=== PATIENT | male | born 1980 | race Caucasian/White ===

== ENCOUNTER 2021-12-05 09:14 | Inpatient (IN) | payer SELFPAY ==
[~2021-12-05] VITALS: Ht 175.3 cm; Wt 88.5 kg
[2021-12-05] MEDS ORDERED: SODIUM CHLORIDE 0.9% 1000ML 1,000 ML IV STA (09:26)
[2021-12-05 09:44] LABS: BASOPHILS % 0.2 % (0.0-1.0); EOSINOPHILS % 0.2 % (0.0-6.0); HEMATOCRIT 43.2 % (38.2-49.6); HEMOGLOBIN 14.9 g/dL (14.0-18.0); LYMPHOCYTES # (AUTO) 0.6 (1.0-3.2); LYMPHOCYTES % 4.2 % (18.0-39.1); MEAN CORPUSCULAR HEMOGLOBIN 31.4 pg (28-32); MEAN CORPUSCULAR HGB CONC 34.5 g/dL (31-35); MEAN CORPUSCULAR VOLUME 90.9 fL (81-99); MONOCYTES # (AUTO) 0.7 (0.2-0.8); MONOCYTES % 5.3 % (4.4-11.3); NEUTROPHILS # (AUTO) 11.9 (2.1-6.9); NEUTROPHILS % 89.5 % (38.7-80.0); PLATELET COUNT 152 x10e3/uL (140-360); RED BLOOD COUNT 4.75 x10e6/uL (4.3-5.7); RED CELL DISTRIBUTION WIDTH 11.6 % (11.7-14.4)
[2021-12-05] MEDS ORDERED: CEFEPIME 2 GM in SODIUM CHLORIDE 0.9% 100 ML IV ONE (09:45)
[2021-12-05 09:46] LABS: CLARITY,URINE CLEAR (CLEAR); COLOR,URINE YELLOW (YELLOW); KETONES,URINE NEGATIVE (NEGATIVE); LEUKOCYTE ESTERASE ,URINE NEGATIVE (NEGATIVE); NITRITE,URINE NEGATIVE (NEGATIVE); PROTEIN,URINE DIPSTICK TRACE (NEGATIVE); URINE UROBILINOGEN 0.2 mg/dL (0.2 - 1)
[2021-12-05] MEDS ORDERED: DIATRIZOATE MEGL/DIATRIZOA SOD 30 ML BTL PO ONE (10:07)
[2021-12-05 10:10] LABS: ALANINE AMINOTRANSFERASE 23 IU/L (0-55); ALBUMIN 4.1 g/dL (3.5-5.0); ALBUMIN/GLOBULIN RATIO 1.3 (0.8-2.0); ALKALINE PHOSPHATASE 63 IU/L (40-150); ANION GAP 13.7 mmol/L (8-16); BLOOD UREA NITROGEN 11 mg/dL (7-26); BUN/CREATININE RATIO 12 (6-25); CALCIUM 8.6 mg/dL (8.4-10.2); CARBON DIOXIDE 23 mmol/L (22-29); CHLORIDE 107 mmol/L (98-107); CREATINE KINASE 131 IU/L (30-200); CREATININE, SERUM 0.92 mg/dL (0.72-1.25); GLUCOSE 129 mg/dL (74-118); LIPASE 13 U/L (8-78); MAGNESIUM 1.6 MG/DL (1.3-2.1); POTASSIUM 3.7 mmol/L (3.5-5.1); SODIUM 140 mmol/L (136-145)
[2021-12-05 10:13] LABS: INR 0.95; PROTHROMBIN TIME 13.6 seconds (11.9-14.5)
[2021-12-05 10:15] LABS: RBC,URINE 0-5 /HPF (0-5); WBC,URINE (MAN) 0-5 /HPF (0-5)
[2021-12-05 10:16] LABS: BACTERIA,URINE MANY /HPF; EPITHELIAL CELLS,URINE FEW /LPF; MUCUS,URINE MANY (RARE)
[2021-12-05] MEDS ORDERED: IOPAMIDOL 370 MG/ML 100 ML INFUS..BTL INJ ONE (10:53)
[2021-12-05] MEDS: SODIUM CHLORIDE 0.9% 1000ML 1,000 ML IV SCH ×2 (12:15→20:15)
[2021-12-05] MEDS ORDERED: PROMETHAZINE 12.5MG/ NACL 0.9% 12.5 MG/50 ML BAG IV ONE (12:15)
[2021-12-05] MEDS: METRONIDAZOLE 500MG/NS 100ML 100 ML IV SCH ×2 (12:15→18:39)
[2021-12-05] MEDS: HYDROMORPHONE 1MG/1ML INJ IV PRN ×3 (13:26→20:39)
[2021-12-05] MEDS: PROMETHAZINE 12.5MG/ NACL 0.9% 12.5 MG/50 ML BAG IV PRN (13:27)
[2021-12-05] MEDS ORDERED: ACETAMINOPHEN 1000 MG/100 ML 100 ML IV ONE (13:33)
[2021-12-05 14:44] VITALS: BP 131/76
[2021-12-05] MEDS ORDERED: AMLODIPINE BESYL5 MG PO (14:53)
[2021-12-05 17:14] VITALS: BP 114/49
[2021-12-05] MEDS: CEFEPIME 2 GM in SODIUM CHLORIDE 0.9% 100 ML IV SCH (17:16)
[2021-12-05 19:51] VITALS: BP 138/54
[2021-12-05 20:00] VITALS: BP 138/54
[2021-12-05] MEDS: ONDANSETRON HCL INJ 2MG/ML 2ML 2 MG/ML VIAL IV PRN (20:39)
[2021-12-05] MEDS ORDERED: ACETAMINOPHEN 325 MG TAB PO PRN (22:15)
[2021-12-06] VITALS (7 sets, daily range): BP systolic 117–136; BP diastolic 53–79
[2021-12-06] MEDS: PROMETHAZINE 12.5MG/ NACL 0.9% 12.5 MG/50 ML BAG IV PRN (00:26)
[2021-12-06] MEDS: METRONIDAZOLE 500MG/NS 100ML 100 ML IV SCH ×4 (00:26→18:39)
[2021-12-06] MEDS: HYDROMORPHONE 1MG/1ML INJ IV PRN ×7 (00:27→21:36)
[2021-12-06] MEDS: CEFEPIME 2 GM in SODIUM CHLORIDE 0.9% 100 ML IV SCH ×3 (01:44→16:53)
[2021-12-06] MEDS: SODIUM CHLORIDE 0.9% 1000ML 1,000 ML IV SCH ×3 (01:44→21:35)
[2021-12-06] MEDS: ONDANSETRON HCL INJ 2MG/ML 2ML 2 MG/ML VIAL IV PRN ×3 (04:59→21:36)
[2021-12-06 05:11] LABS: BASOPHILS % 0.2 % (0.0-1.0); HEMATOCRIT 42.7 % (38.2-49.6); HEMOGLOBIN 14.5 g/dL (14.0-18.0); LYMPHOCYTES # (AUTO) 0.8 (1.0-3.2); LYMPHOCYTES % 10.1 % (18.0-39.1); MEAN CORPUSCULAR HEMOGLOBIN 31.5 pg (28-32); MEAN CORPUSCULAR VOLUME 92.8 fL (81-99); MONOCYTES # (AUTO) 0.5 (0.2-0.8); NEUTROPHILS # (AUTO) 6.7 (2.1-6.9); NEUTROPHILS % 83.3 % (38.7-80.0); PLATELET COUNT 118 x10e3/uL (140-360); RED CELL DISTRIBUTION WIDTH 11.8 % (11.7-14.4)
[2021-12-06 05:44] LABS: ALBUMIN 3.5 g/dL (3.5-5.0); ALBUMIN/GLOBULIN RATIO 1.1 (0.8-2.0); CALCIUM 8.3 mg/dL (8.4-10.2); CREATININE, SERUM 1.03 mg/dL (0.72-1.25)
[2021-12-07] VITALS (7 sets, daily range): BP systolic 117–131; BP diastolic 73–87
[2021-12-07] MEDS: HYDROMORPHONE 1MG/1ML INJ IV PRN (00:40)
[2021-12-07] MEDS: ONDANSETRON HCL INJ 2MG/ML 2ML 2 MG/ML VIAL IV PRN ×2 (00:40→20:15)
[2021-12-07] MEDS: METRONIDAZOLE 500MG/NS 100ML 100 ML IV SCH ×4 (03:02→18:28)
[2021-12-07] MEDS: CEFEPIME 2 GM in SODIUM CHLORIDE 0.9% 100 ML IV SCH ×3 (03:02→17:14)
[2021-12-07] MEDS: PROMETHAZINE 12.5MG/ NACL 0.9% 12.5 MG/50 ML BAG IV PRN (03:28)
[2021-12-07] MEDS: SODIUM CHLORIDE 0.9% 1000ML 1,000 ML IV SCH ×2 (04:57→17:00)
[2021-12-07 05:28] LABS: BASOPHILS % 0.5 % (0.0-1.0); EOSINOPHILS # (AUTO) 0.1 (0.0-0.4); HEMATOCRIT 39.4 % (38.2-49.6); HEMOGLOBIN 13.5 g/dL (14.0-18.0); MEAN CORPUSCULAR HEMOGLOBIN 31.3 pg (28-32); MEAN CORPUSCULAR HGB CONC 34.3 g/dL (31-35); MEAN CORPUSCULAR VOLUME 91.4 fL (81-99); MONOCYTES # (AUTO) 0.7 (0.2-0.8); MONOCYTES % 11.3 % (4.4-11.3); NEUTROPHILS # (AUTO) 3.9 (2.1-6.9); NEUTROPHILS % 68.7 % (38.7-80.0); PLATELET COUNT 109 x10e3/uL (140-360); RED BLOOD COUNT 4.31 x10e6/uL (4.3-5.7); RED CELL DISTRIBUTION WIDTH 11.7 % (11.7-14.4)
[2021-12-07 05:47] LABS: ANION GAP 12.6 mmol/L (8-16); CALCIUM 8.1 mg/dL (8.4-10.2); CREATININE, SERUM 1.04 mg/dL (0.72-1.25); POTASSIUM 3.6 mmol/L (3.5-5.1)
[2021-12-07] MEDS: ACETAMINOPHEN/CODEINE 300MG - 30MG TAB PO PRN ×2 (06:30→20:15)
[2021-12-07] MEDS ORDERED: CYCLOBENZAPRINE HCL 10 MG TAB PO PRN (07:15)
[2021-12-07] MEDS: PANTOPRAZOLE SOD 40 MG TABEC PO SCH (08:25)
[2021-12-08 00:05] VITALS: BP 136/71
[2021-12-08] MEDS: METRONIDAZOLE 500MG/NS 100ML 100 ML IV SCH ×2 (00:29→06:47)
[2021-12-08] MEDS: CEFEPIME 2 GM in SODIUM CHLORIDE 0.9% 100 ML IV SCH ×2 (02:00→09:21)
[2021-12-08] MEDS: ONDANSETRON HCL INJ 2MG/ML 2ML 2 MG/ML VIAL IV PRN ×2 (02:25→07:07)
[2021-12-08 04:56] LABS: BASOPHILS % 0.4 % (0.0-1.0); EOSINOPHILS # (AUTO) 0.2 (0.0-0.4); EOSINOPHILS % 3.6 % (0.0-6.0); HEMATOCRIT 39.9 % (38.2-49.6); HEMOGLOBIN 13.7 g/dL (14.0-18.0); LYMPHOCYTES # (AUTO) 1.3 (1.0-3.2); LYMPHOCYTES % 23.9 % (18.0-39.1); MEAN CORPUSCULAR HEMOGLOBIN 31.2 pg (28-32); MEAN CORPUSCULAR HGB CONC 34.3 g/dL (31-35); MEAN CORPUSCULAR VOLUME 90.9 fL (81-99); MONOCYTES # (AUTO) 0.8 (0.2-0.8); MONOCYTES % 13.8 % (4.4-11.3); NEUTROPHILS # (AUTO) 3.3 (2.1-6.9); NEUTROPHILS % 57.9 % (38.7-80.0); PLATELET COUNT 126 x10e3/uL (140-360); RED BLOOD COUNT 4.39 x10e6/uL (4.3-5.7); RED CELL DISTRIBUTION WIDTH 11.7 % (11.7-14.4)
[2021-12-08 05:14] LABS: ANION GAP 13.4 mmol/L (8-16); CALCIUM 8.3 mg/dL (8.4-10.2); POTASSIUM 3.4 mmol/L (3.5-5.1)
[2021-12-08 05:57] VITALS: BP 111/50
[2021-12-08 07:58] VITALS: BP 123/80
[2021-12-08 08:30] VITALS: BP 123/80
[2021-12-08] MEDS: PANTOPRAZOLE SOD 40 MG TABEC PO SCH (08:31)
[2021-12-08] MEDS ORDERED: ACETAMINOPHEN325 M1 PO (10:15)
[2021-12-08] MEDS ORDERED: PROTONIX40 MG/ML PO (10:15)
[2021-12-08] MEDS ORDERED: CYCLOBENZAPRINE10 MG PO (10:15)
== END 2021-12-08 10:35 | disposition home or self-care (01) | DRG 392 ==
LOC: ER 09:27 → ERHOLD 12:07 → MED/SURG 14:00
PROVIDERS: ADMIT Internal Medicine; ATTEND Internal Medicine
DX: K57.30 Diverticulosis of large intestine without perforation or abscess without bleeding (principal); I10 Essential (primary) hypertension; Z79.899 Other long term (current) drug therapy; Z20.822 Contact with and (suspected) exposure to COVID-19; Z88.0 Allergy status to penicillin; K59.00 Constipation, unspecified; R91.1 Solitary pulmonary nodule; R25.2 Cramp and spasm
CPT/HCPCS: 36415; 71045; 74177; 80048; 80053; 81001; 82550; 82553; 83605; 83690; 83735; 84484; 85025; 85610; 85730; 87040; 87086; 93005; 99284; J0692; J1170; J2405; J2550; J7030; J7050; Q9967

== ENCOUNTER 2021-12-17 00:52 | Emergency (ER) | payer SELFPAY ==
[~2021-12-17] VITALS: Ht 175.3 cm; Wt 88.5 kg
[~2021-12-17 00:52] MED LIST: ACETAMINOPHEN325 M1 PO; AMLODIPINE BESYL5 MG PO; CYCLOBENZAPRINE10 MG PO; PROTONIX40 MG/ML PO
[2021-12-17] MEDS ORDERED: HYDROXYZINE HCL 25 MG TAB PO ONE (01:06)
[2021-12-17] MEDS ORDERED: PREDNISONE 20 MG TAB PO STA (01:06)
[2021-12-17] MEDS ORDERED: FAMOTIDINE 20 MG TAB PO STA (01:06)
[2021-12-17] MEDS ORDERED: PREDNISONE 20 MG TAB ONE (01:24)
[2021-12-17] MEDS ORDERED: HYDROXYZINE HCL 25 MG TAB ONE (01:24)
[2021-12-17] MEDS ORDERED: FAMOTIDINE 20 MG TAB ONE (01:24)
== END 2021-12-17 02:52 | disposition home or self-care (01) ==
LOC: ER 00:57
DX: L50.9 Urticaria, unspecified (principal); Z88.0 Allergy status to penicillin
CPT/HCPCS: 99283; J3410; J7512

== ENCOUNTER 2021-12-17 22:32 | Emergency (ER) | payer SELFPAY ==
[~2021-12-17] VITALS: Ht 175.3 cm; Wt 88.5 kg
[2021-12-17] MEDS ORDERED: EPINEPHRINE HCL 1:1000 1ML 1 MG/ML AMP INJ STA (22:38)
[2021-12-17] MEDS ORDERED: SODIUM CHLORIDE 0.9% 1000ML 1,000 ML IV STA (22:38)
[2021-12-17] MEDS ORDERED: METHYLPREDNISOLONE SOD SUCC 125 MG/2ML VIAL IV STA (22:38)
[2021-12-17] MEDS ORDERED: DIPHENHYDRAMINE HCL INJ 50 MG/ML VIAL IV ONE (22:45)
[2021-12-17] MEDS ORDERED: DIPHENHYDRAMINE HCL 25 MG CAP PO STA (22:49)
[2021-12-17] MEDS ORDERED: FAMOTIDINE 20 MG TAB PO STA (22:50)
[2021-12-17] MEDS ORDERED: EPINEPHRINE HCL 1:1000 1ML 1 MG/ML AMP ONE (22:55)
[2021-12-17] MEDS ORDERED: DIATRIZOATE MEGL/DIATRIZOA SOD 30 ML BTL PO ONE (22:56)
[2021-12-17] MEDS ORDERED: DIPHENHYDRAMINE HCL 25 MG CAP ONE (23:04)
[2021-12-18] MEDS ORDERED: EPINEPHRINE HCL 1:1000 1ML 1 MG/ML AMP INJ STA (00:17)
== END 2021-12-18 01:00 | disposition home or self-care (01) ==
LOC: ER 22:41
DX: T78.2XXA Anaphylactic shock, unspecified, initial encounter (principal); R21 Rash and other nonspecific skin eruption; R22.0 Localized swelling, mass and lump, head; I10 Essential (primary) hypertension; Z79.899 Other long term (current) drug therapy; Z88.0 Allergy status to penicillin
CPT/HCPCS: 99284; J0171 ×2